=== PATIENT | female | born 1980 | race African-American/Black ===

== ENCOUNTER 2019-05-30 14:23 | Emergency (ER) | payer OTHER ==
[~2019-05-30] VITALS: Ht 167.6 cm; Wt 86.1 kg
--- NOTE | 2019-05-30 14:57 | PHYS DOC ---
Past History Past Medical History: Other Past Surgical History: No Surgical History Alcohol Use: None Drug Use: None Adult General Chief Complaint Chief Complaint: SHORTNESS OF BREATH HPI HPI 39-year-old female presents with sudden onset of shortness of breath. The patient was working out at the gym. She had no difficulty during her elliptical training. She was taking a shower when she suddenly had shortness of breath. The shortness of breath was a lack of the ability to breathe. She didn't feel like she can get air in at all. She denies trauma or fall. She denies aspirating food or another substance. This feeling lasted for several minutes. The patient was about to call 911 when the symptoms began to subside. She went back to her desk at work, but still felt intermittent shortness of breath. She describes this as feeling like she couldn't get a deep breath. Denies nausea, vomiting, dizziness, cough. Patient has no history of reactive airway disease or other breathing issues. She's never had anything like this happen before. No known allergies. She is currently feeling better, but has an occasional feeling of globus sensation in her throat. Review of Systems Review of Systems Constitutional: Denies fever or chills [] Eyes: Denies change in visual acuity, redness, or eye pain [] HENT: Denies nasal congestion or sore throat [] Respiratory: shortness of breath [] Cardiovascular: No additional information not addressed in HPI [] GI: Denies abdominal pain, nausea, vomiting, bloody stools or diarrhea [] : Denies dysuria or hematuria [] Musculoskeletal: Denies back pain or joint pain [] Integument: Denies rash or skin lesions [] Neurologic: Denies headache, focal weakness or sensory changes [] Endocrine: Denies polyuria or polydipsia [] All other systems were reviewed and found to be within normal limits, except as documented in this note. Allergies Allergies Allergies Coded Allergies Type Severity Reaction Last Updated Verified No Known Drug Allergies 05/30/19 No Physical Exam Physical Exam Constitutional: Well developed, well nourished, no acute distress, non-toxic appearance. [] HENT: Normocephalic, atraumatic, bilateral external ears normal, oropharynx moist, no oral exudates, nose normal. [] Eyes: PERRLA, EOMI, conjunctiva normal, no discharge. [] Neck: Normal range of motion, no tenderness, supple, no stridor. [] Cardiovascular:Heart rate regular rhythm, no murmur [] Lungs & Thorax: Bilateral breath sounds clear to auscultation [] Abdomen: Bowel sounds normal, soft, no tenderness, no masses, no pulsatile masses. [] Skin: Warm, dry, no erythema, no rash. [] Back: No tenderness, no CVA tenderness. [] Extremities: No tenderness, no cyanosis, no clubbing, ROM intact, no edema. [] Neurologic: Alert and oriented X 3, normal motor function, normal sensory function, no focal deficits noted. [] Psychologic: Affect normal, judgement normal, mood normal. [] Current Patient Data Vital Signs Vital Signs Date Time Temp Pulse Resp B/P (MAP) Pulse Ox O2 Delivery O2 Flow Rate FiO2 05/30/19 14:33 98.2 77 16 99 Room Air EKG EKG Sinus rhythm, rate 68, normal axis, no ST elevations or depressions.[] Radiology/Procedures Radiology/Procedures [] Impressions: Examination: NECK SOFT TISSUE History: Difficulty swallowing. Foreign body question. Comparison/Correlation: None Findings: Frontal and lateral soft tissue views of the neck were obtained. Soft tissues are unremarkable. Bony structures are unremarkable. No significant degenerative change of the cervical spine. No bony destructive finding. Impression: No radiopaque foreign body. Unremarkable exam. Electronically signed by: James Bates MD (05/30/2019 3:11 PM) [facility] DICTATED AND SIGNED BY: JAMES BATES MD DATE: 05/30/19 1511 CC: JEFFREY MAY DO; MARK ENGLAND DO, M[facility] ~ EXAM: Chest, 2 views. HISTORY: Shortness of breath. COMPARISON: None. FINDINGS: 2 views of the chest are obtained. There is no infiltrate, pleural effusion or pneumothorax. The heart is normal in size. IMPRESSION: No acute pulmonary finding. Electronically signed by: Delmis Kramer MD (05/30/2019 3:22 PM) [place] [id number] DICTATED AND SIGNED BY: DELMIS KRAMER MD DATE: 05/30/19 1522 CC: JEFFREY MAY DO; MARK ENGLAND DO, MPH ~ Course & Med Decision Making Course & Med Decision Making Pertinent Labs and Imaging studies reviewed. (See chart for details) Patient's labs are unremarkable. Her chest x-ray is unremarkable. Soft tissue neck is unremarkable. She is feeling better at this time. I am not sure what happened. This could've been esophageal spasm or some other reaction to an ir ritant. The patient is reassured by these results. She would like to go home. I believe she is safe for discharge. If her symptoms return, she will come back to emergency room. [] Dragon Disclaimer Dragon Disclaimer This electronic medical record was generated, in whole or in part, using a voice recognition dictation system. Departure Departure: Impression: Primary Impression: Shortness of breath Disposition: 01 HOME, SELF-CARE Condition: STABLE Referrals: MARK ENGLAND DO, M[facility] (PCP) Patient Instructions: Shortness of Breath, [id number] JEFFREY MAY DO May 30, 2019 14:56
[2019-05-30 14:58] LABS: BASO % 1 % (0-3); EOS % 0 % (0-3); HEMATOCRIT 38.8 % (36.0-47.0); HEMOGLOBIN 12.7 g/dL (12.0-15.5); LYMPH # 1.2 x10^3/uL (1.0-4.8); LYMPH % 32 % (24-48); MEAN CORPUSCULAR HEMOGLOBIN 31 pg (25-35); MEAN CORPUSCULAR HGB CONC 33 g/dL (31-37); MEAN CORPUSCULAR VOLUME 93 fL (79-100); MONO # 0.3 x10^3/uL (0.0-1.1); MONO % 9 % (0-9); NEUT # 2.2 x10^3uL (1.8-7.7); NEUT % 58 % (31-73); PLATELET COUNT 241 x10^3/uL (140-400); RED BLOOD COUNT 4.16 x10^6/uL (3.50-5.40); RED CELL DISTRIBUTION WIDTH 13.6 % (11.5-14.5); WHITE BLOOD COUNT 3.9 x10^3/uL (4.0-11.0)
--- NOTE | 2019-05-30 15:14 | RAD ---
Examination: NECK SOFT TISSUE History: Difficulty swallowing. Foreign body question. Comparison/Correlation: None Findings: Frontal and lateral soft tissue views of the neck were obtained. Soft tissues are unremarkable. Bony structures are unremarkable. No significant degenerative change of the cervical spine. No bony destructive finding. Impression: No radiopaque foreign body. Unremarkable exam. Electronically signed by: James Kahn MD (05/30/2019 3:11 PM) [facility]
[2019-05-30 15:15] LABS: ALBUMIN 3.6 g/dL (3.4-5.0); CALCIUM 8.8 mg/dL (8.5-10.1); CREATININE 0.9 mg/dL (0.6-1.0); GFR 83.9; POTASSIUM 3.6 mmol/L (3.5-5.1); TOTAL BILIRUBIN 0.3 mg/dL (0.2-1.0); TOTAL PROTEIN 7.2 g/dL (6.4-8.2)
[2019-05-30 15:25] VITALS: BP 108/65
--- NOTE | 2019-05-30 15:26 | RAD ---
EXAM: Chest, 2 views. HISTORY: Shortness of breath. COMPARISON: None. FINDINGS: 2 views of the chest are obtained. There is no infiltrate, pleural effusion or pneumothorax. The heart is normal in size. IMPRESSION: No acute pulmonary finding. Electronically signed by: Delmis Horne MD (05/30/2019 3:22 PM) [facility]
--- NOTE | 2019-05-30 15:40 | EKG ---
[address] [address] Test Date: 2019-05-30 Test Time: 14:44:18 Pat Name: IDRIS SEWELL Department: Room: Gender: F [employer] Worker: TANA : 1980 Requested By: JEFFREY MAY Order Number: [id number] Reading MD: Measurements Intervals [place] Rate: 68 P: 36 KS: 150 QRS: 46 QRSD: 78 T: 23 QT: 396 QTc: 421 Interpretive Statements SINUS RHYTHM NORMAL ECG RI6.01 No previous ECG available for comparison
== END 2019-05-30 15:37 | disposition home or self-care (01) ==
LOC: ER 14:23
DX: R06.02 Shortness of breath (principal); R13.10 Dysphagia, unspecified
CPT/HCPCS: 36415; 70360; 71046; 80053; 84484; 85025; 93005; 99285